=== PATIENT | female | born 1960 | race Caucasian/White ===

== ENCOUNTER → 2017-05-14 | Outpatient (CLI) | payer BC ==
--- NOTE | 2017-05-14 16:14 | RADIOLOGY REPORT PS360 ---
EXAM: LUMBAR SPINE 5 VIEWS HISTORY: Right-sided low back pain LEFT FOOT PAIN,RT HIP PAIN ORDERING PHYSICIAN: Asaf Arteaga MD PATIENT AGE: 56 years COMPARISON: None FINDINGS: No acute fracture or dislocation evident. Degenerative disc disease is present at T11-T12 and T12-L1. There is 3 mm anterolisthesis of L4 on L5 with mild degenerative disc disease at that level. Small anterior osteophytes are present involving the lumbar spine. Mild facet hypertrophic changes are present at L5-S1. No lytic or blastic change evident. IMPRESSION: 1. Mild lumbar spondylosis with degenerative disc disease and facet arthritic change as described above. 2. No acute finding
--- NOTE | 2017-05-14 16:16 | RADIOLOGY REPORT PS360 ---
FOOT-LT-3 VIEWS HISTORY: Left foot pain LEFT FOOT PAIN,RT HIP PAIN ORDERING PHYSICIAN: Asaf Arteaga MD PATIENT AGE: 56 years COMPARISON: None FINDINGS: Small calcific density is present at the base of the fifth metatarsal. A lucency is present between this and the base of the fifth metatarsal suggesting a nondisplaced avulsion injury. No other significant anomalies are evident. There is a small calcaneal spur at 6 mm. IMPRESSION: Small volume fracture involving the base of the fifth metatarsal minimally distracted
--- NOTE | 2017-05-14 16:17 | RADIOLOGY REPORT PS360 ---
HIP RT 2-3V W/PELVIS IF PERFOR HISTORY: Right hip pain LEFT FOOT PAIN,RT HIP PAIN ORDERING PHYSICIAN: Asaf Arteaga MD PATIENT AGE: 56 years COMPARISON: None FINDINGS: No fracture or dislocation is evident. No significant degenerative change. No lytic or blastic change. Unremarkable soft tissues vertebral clips are present in the pelvis and lung pubic rami IMPRESSION: Negative right hip
== END ==
LOC: RAD 15:30
DX: M79.672 Pain in left foot (principal); M25.551 Pain in right hip

== ENCOUNTER → 2017-06-03 | Outpatient (CLI) | payer BC ==
--- NOTE | 2017-06-03 20:15 | RADIOLOGY REPORT PS360 ---
FOOT-LT-3 VIEWS HISTORY: HEALING OF 5TH METATARSAL BONE FX Patient Age: 57 years: Female Ordering Physician: Asaf Arteaga MD TECHNIQUE: 3 views left foot COMPARISON :05/14/2017 left foot FINDINGS The metatarsals appear intact. The small pushpa of density off the base of the fifth metatarsal again noted and could reflect a tiny chip avulsion fracture. It has become more dense than the previous study. The plantar calcaneal spur previous a evident is barely appreciable today. This may be due to rotation.. The tarsals unremarkable IMPRESSION: The small pushpa of density at the base of fifth metatarsal appears stable. Perhaps Slight progressive density here, conceivably could reflect healing. . Otherwise remainder the fifth metatarsal is intact. . The previous moderate plantar calcaneal spur is not seen on today's projection. Possibly due to rotation.
== END ==
LOC: RAD 12:02
DX: S92.355D Nondisplaced fracture of fifth metatarsal bone, left foot, subsequent encounter for fracture with routine healing (principal)